=== PATIENT | male | born 1960 | race Caucasian/White ===

== ENCOUNTER 2017-04-15 15:17 | Emergency (ER) | payer MEDICAID ==
[~2017-04-15] VITALS: Ht 165.1 cm; Wt 126.1 kg
[2017-04-15 15:17] VITALS: BP 128/87
[2017-04-15] MEDS ORDERED: SILVER NITRATE APPLICATOR 1 EA BOX ONE (16:55)
== END 2017-04-15 17:21 | disposition home or self-care (01) ==
LOC: ER 15:19
DX: E11.622 Type 2 diabetes mellitus with other skin ulcer (principal); I10 Essential (primary) hypertension
CPT/HCPCS: 10060; 73590; 99284; A4606 ×2; A6402; A6407; Z7610